=== PATIENT | male | born 1945 | race Caucasian/White ===

== ENCOUNTER 2018-05-25 19:05 | Emergency (ER) | payer MEDICARE ==
--- NOTE | 2018-05-25 19:29 | ED ---
Head Injury - HPI Summary HPI Summary: This is [place] documenting for attending Wiley Shelby MD. This patient is a 72 year old M presenting to [facility] with a chief complaint of fall from a standing height since earlier this afternoon. The patient lives at [facility], a nursing facility. The patient hit his head on walker in the cafeteria. The patient reports that he lost his balance walking from his chair to his walker and has had similar falls before. The patient rates the pain 0/10 in severity. Symptoms aggravated by nothing. Symptoms alleviated by nothing. Patient reports bladder incontinence. Patient denies headache. Patient is visually impaired and has Hx of CVA. According to staff at the nursing facility , the patient is at his normal baseline. - History Of Current Complaint Stated Complaint: FALL Time Seen by Provider: 05/25/18 19:11 Hx Obtained From: Patient Mechanism Of Injury: Fall From A Standing Position Onset/Duration: Started Hours Ago, Still Present Onset of Pain: Post Accident Severity Currently: Mild Severity Initially: Mild Pain Intensity: 0 Pain Scale Used: 0-10 Numeric Aggravating Factor(s): Other: - nothing Alleviating Factor(s): Other: - nothing Associated Signs And Symptoms: Negative - no LOC, Other: - bladder incontinence - Allergies/Home Medications Allergies/Adverse Reactions: Allergies Allergy/AdvReac Type Severity Reaction Status Date / Time No Known Allergies Allergy Verified 04/24/13 18:14 Home Medications: Home Medications Acetaminophen TAB* [Tylenol TAB*] 325 mg PO Q6H PRN 05/25/18 [History Confirmed 05/25/18] Lisinopril TAB* [Prinivil TAB*] 5 mg PO DAILY 05/25/18 [History Confirmed ] Sennosides/Docusate Sodium [Senna-Docusate Sodium Tablet] 2 tab PO BEDTIME PRN 05/25/18 [History Confirmed 05/25/18] Spironolactone TAB* [Aldactone TAB*] 25 mg PO QAM 05/25/18 [History Confirmed ] hydrALAZINE TAB* [Apresoline TAB*] 25 mg PO TID 05/25/18 [History Confirmed ] PMH/Surg Hx/FS Hx/Imm Hx Cardiovascular History: Reports: Hx Hypertension Opthamlomology History: Reports: Hx Vision Problem Neurological History: Reports: Hx CVA - Surgical History Surgery Procedure, Year, and Place: Triple Bypass, 1992 - Family History Known Family History: Positive: None - Social History [facility]: [facility] Alcohol Use: None Substance Use Type: Reports: None Smoking Status (MU): Former Smoker Review of Systems Negative: Epistaxis Negative: Cough Positive: incontinence - bladder incontinence Negative: Headache All Other Systems Reviewed And Are Negative: Yes Physical Exam - Summary Physical Exam Summary: Appearance: Well-appearing, Well-nourished, lying in bed comfortably. No visual signs of trauma Skin: Warm, dry, no obvious rash Eyes: sclera anicteric, no conjunctival pallor ENT: mucous membranes moist, pharynx appears normal Neck: Supple, nontender Respiratory: Clear to auscultation, no signs of respiratory distress Cardiovascular: Normal S1, S2. No murmurs. Normal distal pulses in tibial and radial bilaterally. Abdomen: Soft, nontender, normal active bowel sounds present Musculoskeletal: Normal, Strength/ROM Intact Neurological: A&Ox3, awake and alert, mentation is normal, speech is fluent and appropriate Psychiatric: affect is normal, does not appear anxious or depressed Triage Information Reviewed: Yes Vital Signs Reviewed: Yes Diagnostics - Laboratory Lab Statement: Any lab studies that have been ordered have been reviewed, and results considered in the medical decision making process. - CT CT Brain CT Interpretation: No Acute Changes - IMPRESSION: No acute intracranial findings. Cortical atrophy. Dr. Shelby has reviewed this report CT Interpretation Completed By: Radiologist Head Injury Course/Dx Course Of Treatment: This is a 72-year-old man who is living in a halfway facility, who fell today due to losing his balance getting up to get to his walker. He reportedly suffered a head injury although there is no surface sign of injury. Head CT was obtained due to his age and his negative for any intracranial trauma. Patient is awake and alert and appears to be at his mental baseline. He is stable for discharge at this point. Note is made that he is a hospitalized/[facility] patient, so no further diagnostic evaluations were undertaken. - Diagnoses Provider Diagnoses: Fall, Head injury Discharge - Sign-Out/Discharge Documenting (check all that apply): Patient Departure - Discharge Plan Condition: Stable Disposition: HOME Patient Education Materials: Fall Prevention for Older Adults (ED), Head Injury (ED) Referrals: Lenin David MD [Primary Care Provider] -
--- NOTE | 2018-05-25 19:35 | RAD ---
INDICATION: Fall. Intracranial injury. COMPARISON: None TECHNIQUE: Noncontrast axial source images were acquired from the skull base to the vertex. FINDINGS: Ventricles/sulci: There is cortical atrophy with compensatory dilatation of the CSF spaces. Brain parenchyma: There is no acute appearing focal parenchymal finding, evidence of intracranial mass, or intracranial mass effect. Intracranial hemorrhage:None. Extra-axial spaces: There are no abnormal extra axial fluid collections or evidence of extra-axial mass. Calvarium: There is no calvarial fracture or other calvarial abnormality. Scalp: There is no evidence of scalp or extracalvarial soft tissue abnormality. Paranasal sinuses/mastoid: The paranasal sinuses and mastoid air cells are clear. Other: None. IMPRESSION: No acute intracranial findings. Cortical atrophy.
[2018-05-25 23:27] VITALS: BP 184/66
== END 2018-05-25 23:28 | disposition home or self-care (01) ==
LOC: ED 19:05
DX: S09.90XA Unspecified injury of head, initial encounter (principal); W19.XXXA Unspecified fall, initial encounter; Y92.129 Unspecified place in nursing home as the place of occurrence of the external cause; G31.9 Degenerative disease of nervous system, unspecified; I10 Essential (primary) hypertension; H54.7 Unspecified visual loss; Z86.73 Personal history of transient ischemic attack (TIA), and cerebral infarction without residual deficits; Z79.899 Other long term (current) drug therapy; Z87.891 Personal history of nicotine dependence
CPT/HCPCS: 70450; 99283